=== PATIENT | male | born 1950 | race Hispanic/Latino ===

== ENCOUNTER 2018-10-16 17:00 | Emergency (ER) | payer SELFPAY ==
[2018-10-16] MEDS ORDERED: EPINEPHrine 1 MG/10 ML SYR IV ONE (17:01)
[2018-10-16] MEDS ORDERED: ATROPINE SULF 1 MG/10 ML SYR IV ONE (17:01)
[2018-10-16 17:29] LABS: Absolute Lymphocytes (CBC) 5.7 K/uL (0.7-4.9); Absolute Monocytes 0.8 K/uL (0.1-1.3); Absolute Neutrophil 3.9 K/uL (1.8-8.0); Basophils % 0.6 % (0-1.3); Eosinophils % 0.7 % (0-4.4); Hematocrit 51.3 % (39.6-49.0); Lymphocytes % 53.8 % (15.3-44.8); MPV 10.2 fL (7.6-11.3); RBC Red Blood Cell Count 4.75 M/uL (4.33-5.43)
[2018-10-16 18:07] LABS: Protime INR 1.04
[2018-10-16 18:08] LABS: Albumin 3.9 g/dL (3.4-5.0); Bilirubin Direct 0.2 mg/dL (0-0.2); Bilirubin Total 0.7 mg/dL (0.2-1.0); Magnesium 3.2 mg/dL (1.8-2.4); Potassium 4.8 mmol/L (3.5-5.1); Protein, Total 7.3 g/dL (6.4-8.2); Troponin (Emerg Dept Use Only) 1.27 ng/mL (0.0-0.045)
--- NOTE | 2018-10-16 18:10 | ER ---
Nurse's Notes [facility] Name: El Arenas Jr Age: 68 yrs Sex: Male : 1950 Arrival Date: 10/16/2018 Time: 17:03 Bed 3 Private MD: Diagnosis: Cardiac arrest Presentation: 10/16 16:58 Presenting complaint: EMS states: arrived to ED CPR in progress. Kobe tube in place, ss manually bagged by EMS staff. EMS reports that patient was out fishing with family when he was [place]. EMS called to scene at 1618 which he reportedly had a faint pulse. Bystanders began CPR at 1625 after they were no longer to feels a pulse. On EMS arrival to scene, pt was found to have no pulse, in PEA. Transition of care: patient was not received from another setting of care. Onset of symptoms was October 16, 2018. Risk Assessment: Do you want to hurt yourself or someone else? Unable to obtain. Initial Sepsis Screen: Does the patient meet any 2 criteria? Does the patient have a suspected source of infection? No. Patient's initial sepsis screen is negative. Care prior to arrival: Medication(s) given: Normal saline infusion, 1000 mL, EPI x 3 IVP given by EMS to L IO (tibia). 16:58 Method Of Arrival: EMS: [facility] 16:58 Acuity: KYLE 1 ss Historical: - Allergies: 17:42 Unable to obtain; ss - Home Meds: 17:42 Unable to obtain [Active]; ss - PMHx: 17:42 Hypertension; CAD; ss - PSHx: 17:42 Unable to obtain; ss - Immunization history:: Adult Immunizations unknown. - Social history:: Smoking status: unknown. - Ebola Screening: : Unable to complete screening because patient is unresponsive, patient is intubated. - Family history:: not pertinent. - Hospitalizations: : No recent hospitalization is reported. - History obtained from: son. Screenin:05 Abuse screen: no obvious signs of abuse/ neglect noted. Tuberculosis screening: No ss symptoms or risk factors identified. Fall Risk. Assessment: 17:03 Reassessment: Pulse check: no pulse, PEA. CPR resumed. ss 17:03 Neuro: Level of Consciousness is unresponsive, pupils are fixed and dilated. . aa5 Cardiovascular: Pulses are absent in carotid and femoral Rhythm is PEA. Respiratory: Airway via oral intubation Assisted ventilations with ambu bag. GI: Abdomen is round. Derm: Skin is clammy, Skin is cyanotic Skin temperature is cool. 17:06 Reassessment: pulse check: no pulse. PEA. CPR resumed. ss 17:08 Reassessment: pulse check: no pulse. PEA, CPR resumed. ss 17:11 Reassessment: pulse check: faint carotid pulse noted x 15 seconds. PEA again, CPR ss resumed. 17:15 Reassessment: pulse check: weak, thready carotid pulse noted x 1 minute. PEA at 1716 ss CPR resumed. 17:19 Reassessment: pulse check: Faint carotid pulse noted x 1 minute. CPR resumed after ss pulse is lost at 1720. 17:23 Reassessment: Pulse check: PEA, CPR resumed. ss 17:27 Reassessment: Pulse check, PEA. CPR resumed. 17:30 Reassessment: Pulse check: PEA, CPR resumed. Dr. Shah speaking with family at this ss time discussing events leading up to incident. Family reports that patient was fishing on a boat and was fine all day, but on the way [place] the [place], he collapsed, and after a family member rubbed his check, he gave a thumbs up, but became unresponsive shortly after. Son reports that patient was recently told he had a blockage in his heart, and was scheduled to have a angioplasty in 5 days. 17:33 Reassessment: Pulse check: PEA. 17:34 Reassessment: Time of called by Dr. Shah. 17:40 Reassessment: Verified with Sixto Aguila RN $71.10 counted and collected from patient's belongings. Given to son, Rico Arenas. 17:40 Reassessment: $71.10 gallego, gold cornelius, dentures (removed by EMS prior to intubation), and aa5 white shoes given to pt's son Rico Arenas. Witnessed by Shaila Banks RN. 17:40 Reassessment: Pt's family at bedside . aa5 17:40 Reassessment: Spoke to pt's family and notified of need to look for home. Pt's aa5 son states "we are from [place] so he will have to go up there". Pt's family verbalized understanding. . 18:35 Reassessment: Oil Dipper Rape at bedside speaking to family . aa5 18:40 Reassessment: Contacted [employer]. Spoke to Jessa Yan, case # [id number]. Jessa sergio Yan states pt is registered donor and next of kin information was given for [employer] Coordinator to contact family. Coordinator requesting to place cooling blanket on patient at this time and states she will follow-up about home later. Call started at 1819 and completed at 1840. . 21:00 Reassessment: [facility] and take the body. rr5 [facility] informed anneliese moscoso that [facility] Vital Signs: 16:58 Resp 16 A; ss 17:04 Temp 98.4(R); ss 17:15 Pulse 65; Pulse Ox 64% on ETT ambu; ss 17:17 Pulse Ox 87% on ETT ambu; ss 17:19 BP 60 / 40; Pulse 57; ss 17:20 Pulse 30; Pulse Ox 57% on ETT ambu; ss 17:28 Pulse Ox 48% on ETT ambu; ss 17:15 regained pulse x 1 minute. Pulse PEA once again at 1717 ss 17:19 Faint carotid pulse ss [place] Coma Score: 17:04 Eye Response: none(1). Verbal Response: none(1). Motor Response: none(1). Total: 3. ED Course: 16:58 Patient arrived in ED. aa5 17:02 Assisted provider with intubation using 7.5 mm ETT via oral route. ET tube secured at ss 23cm at the teeth. Set up intubation tray. Intubated by Duong Shah MD Placement verified by CO2 detector w/ + color change, auscultating bilateral breath sounds. Inserted saline lock: 20 gauge in left antecubital area, using aseptic technique. ,using aseptic technique. insertion by Sixto Tamayo RN Blood collected. 17:05 Arm band placed on right wrist. ss 17:05 Patient has correct armband on for positive identification. Bed in low position. ss plant protection superintendent on. Pulse ox on. NIBP on. 17:29 Inserted saline lock: 20 gauge in left wrist, using aseptic technique. Blood collected. ss 17:35 Duong Shah MD is Attending Physician. rn 17:41 Triage completed. ss 17:43 Sixto Aguila RN is Primary Nurse. aa5 17:58 Maintain EMS IV. Gauge \\T\\ site: 20 gauge IO to L tibia. ss 18:09 Duong Shah MD is Pronouncing Provider. rn 18:14 Notified [place] [employer] for Oil Dipper. Oil Dipper Rape was notified. ag 19:09 Report given to DEYSI Mata. aa5 19:25 cooling blanket applied. rr5 Administered Medications: 16:58 Drug: NS 0.9% 1000 ml {Note: administered pre hospital to L IO, continued in ED..} ss Route: IV; Rate: 1000 ml; Site: Other; 18:01 Follow up: infusion switched to L AC at 1701 ss 17:02 Drug: Sodium Bicarbonate 1 amp {Note: administered by Sixto Owen RN.} Route: IVP; Site: ss left antecubital; 17:02 Drug: EPINEPHrine 0.1mg/mL 1:10,000 1 mg {Note: administered to L IO.} Route: IVP; ss Site: Other; 17:05 Drug: Sodium Bicarbonate 1 amp {Note: administered by DEYSI Limon.} Route: IVP; Site: left ss antecubital; 17:05 Drug: EPINEPHrine 0.1mg/mL 1:10,000 1 mg Route: IVP; Site: left antecubital; ss 17:09 Drug: EPINEPHrine 0.1mg/mL 1:10,000 1 mg Route: IVP; Site: left antecubital; ss 17:12 Drug: EPINEPHrine 0.1mg/mL 1:10,000 1 mg Route: IVP; Site: left antecubital; 17:14 Drug: Sodium Bicarbonate 1 amp {Note: Administred by RN. sixto} Route: IVP; Site: left ss antecubital; 17:17 Drug: EPINEPHrine 0.1mg/mL 1:10,000 1 mg Route: IVP; Site: left antecubital; 17:20 Drug: Atropine 1 mg Route: IVP; Site: left antecubital; 17:24 Drug: EPINEPHrine 0.1mg/mL 1:10,000 1 mg Route: IVP; Site: left antecubital; ss 17:28 Drug: EPINEPHrine 0.1mg/mL 1:10,000 1 mg Route: IVP; Site: left antecubital; ss 17:32 Drug: EPINEPHrine 0.1mg/mL 1:10,000 1 mg Route: IVP; Site: left wrist; ss Point of Care Testing: Blood Glucose: 17:03 Blood Glucose: 226 mg/dL; ss Ranges: Intake: Outcome: 21:00 Patient : Time of 17:34 Pronounced by Duong Shah MD Body to home.rr5 21:00 Condition: 21:00 Discharge instructions given to family, Instructed on service coordination. Demonstrated understanding of instructions. 21:06 Patient left the ED. rr5 Signatures: Duong Shah MD MD rn Calderon, Audri RN RN aa5 Shaila Banks RN RN ss Attema, Lee, RN RN la1 Pushpa Ogden Raymond RN RN rr5 Corrections: (The following items were deleted from the chart) 17:48 17:42 Resp 16bpm; Assisted; [facility] 17:51 17:14 Resp 16bpm; Pulse Ox 57% ET / Ambu; ss 18:05 18:02 Reassessment: Pulse check: no pulse, PEA. CPR resumed [facility] 18:10 17:03 Patient arrived in ED. la1 aa5 18:13 17:23 Reassessment: Pulse check: PEA [facility] 18:16 17:33 Reassessment: Pulse check: PEA. Time of called by Dr. Shah. [facility] 18:38 17:40 Reassessment: $71.10. aa5 aa5 18:43 17:19 Reassessment: pulse check: Faint carotid pulse noted x 1 minute. CPR resumed ss after pulse is lost ss
--- NOTE | 2018-10-16 18:10 | EDPHYS ---
Physician Documentation [facility] Name: El Arenas Jr Age: 68 yrs Sex: Male : 1950 Arrival Date: 10/16/2018 Time: 17:03 Bed 3 Private MD: ED Physician Duong Shah HPI: 10/16 18:02 This 68 yrs old Male presents to ER via EMS with complaints of CPR in progress.rn 18:02 Preceding the arrest, the patient collapsed. The arrest occurred [place], in boat. rn Pre-hospital course: The arrest was witnessed EMS care prior to arrival: initiation of ACLS, peripheral IV, ACLS has been in progress for 40 minutes. ACLS details: Initial rhythm was PEA. The presenting rhythm is PEA. Airway: Kobe tube, Medications given by EMS prior to arrival - Epinephrine IV x 3 doses, Defibrillation was not performed, Response to therapy: continued arrest. The patient has not experienced similar symptoms in the past. Family reports on boat today fishing, was doing fine, when coming back in, collapsed, unresponsive. Son states recently patient told needed a cardiac stent, and had appt with cardiology coming up for the final say. . Historical: - Allergies: 17:42 Unable to obtain; ss - Home Meds: 17:42 Unable to obtain [Active]; ss - PMHx: 17:42 Hypertension; CAD; ss - PSHx: 17:42 Unable to obtain; ss - Immunization history:: Adult Immunizations unknown. - Social history:: Smoking status: unknown. - Ebola Screening: : Unable to complete screening because patient is unresponsive, patient is intubated. - Family history:: not pertinent. - Hospitalizations: : No recent hospitalization is reported. - History obtained from: son. ROS: 18:02 Unable to obtain ROS due to comatose state. rn Exam: 18:02 Constitutional: Well developed male, cyanotic and lifeless, compression delivered by rn JOSE device, kobe tube in place Head/Face: Normocephalic, atraumatic. Eyes: Dilated and unresponsive. ENT: NO oral trauma Cardiovascular: No spont contractions Respiratory: coarse bilateral breath sounds with bagging, no spont breaths Abdomen/GI: scaphoid, no masses or signs of trauma Back: No signs of trauma of back Male : Normal genitalia with no discharge or lesions. MS/ Extremity: No peripheral or central pulses Neuro: GCS 3, intubated Vital Signs: 16:58 Resp 16 A; ss 17:04 Temp 98.4(R); ss 17:15 Pulse 65; Pulse Ox 64% on ETT ambu; ss 17:17 Pulse Ox 87% on ETT ambu; ss 17:19 BP 60 / 40; Pulse 57; ss 17:20 Pulse 30; Pulse Ox 57% on ETT ambu; ss 17:28 Pulse Ox 48% on ETT ambu; ss 17:15 regained pulse x 1 minute. Pulse PEA once again at 1717 ss 17:19 Faint carotid pulse ss [place] Coma Score: 17:04 Eye Response: none(1). Verbal Response: none(1). Motor Response: none(1). Total: 3. ss Procedures: 18:02 Intubation: Intubated orally using # 4 Jenae blade with 7.5 mm ETT. was successful rn on first attempt. Cricoid pressure applied during procedure. Tube secured with ETT zaldivar at right side of mouth measured 23 cm at teeth. Placement verified by CO2 detector with (+) color change, auscultating bilateral breath sounds, Patient tolerated well. 18:02 CPR: See CPR flow sheet. Initial patient assessment: unresponsive, pupils fixed \T\ rn dilated, pulses present w/ compressions, The presenting cardiac rhythm is PEA. Compressions: began prior to arrival. Meds given: See Meds list. despite ED evaluation and treatment, the patient . CPR was stopped at 17:34. MDM: 17:35 Patient medically screened. rn 18:02 Differential diagnosis: arrythmia, cardiac arrest, respiratory arrest. Data reviewed: rn vital signs, nurses notes. Counseling: I had a detailed discussion with the patient and/or guardian regarding: the historical points, exam findings, and any diagnostic results supporting the discharge/admit diagnosis. Response to treatment: There is no appreciated change of the patient's symptoms at this time. 10/16 17:04 Order name: Basic Metabolic Panel ag 10/16 17:04 Order name: CBC with Diff ag 10/16 17:04 Order name: LFT's ag 10/16 17:04 Order name: Magnesium ag 10/16 17:04 Order name: NT PRO-BNP ag 10/16 17:04 Order name: PT-INR ag 10/16 17:04 Order name: Troponin (emerg Dept Use Only) ag 10/16 17:05 Order name: Basic Metabolic Panel EDMS 10/16 17:05 Order name: CBC with Automated Diff EDMS 10/16 17:05 Order name: Liver (Hepatic) Function EDMS 10/16 17:05 Order name: Magnesium EDMS 10/16 19:40 Order name: CBC Smear Scan EDMS 10/16 17:04 Order name: EKG; Complete Time: 17:06 ag 10/16 17:04 Order name: Cardiac monitoring; Complete Time: 17:54 ag 10/16 17:04 Order name: EKG - Nurse/Tech; Complete Time: 17:54 ag 10/16 17:04 Order name: IV Saline Lock; Complete Time: 17:54 ag 10/16 17:04 Order name: Labs collected and sent; Complete Time: 17:54 ag 10/16 17:04 Order name: O2 Per Protocol; Complete Time: 17:54 ag 10/16 17:04 Order name: O2 Sat Monitoring; Complete Time: 17:54 ag Administered Medications: 16:58 Drug: NS 0.9% 1000 ml {Note: administered pre hospital to L IO, continued in ED..} Route: IV; Rate: 1000 ml; Site: Other; 18:01 Follow up: infusion switched to L AC at 1701 17:02 Drug: Sodium Bicarbonate 1 amp {Note: administered by Karen Owen RN.} Route: IVP; Site: left antecubital; 17:02 Drug: EPINEPHrine 0.1mg/mL 1:10,000 1 mg {Note: administered to L IO.} Route: IVP; Site: Other; 17:05 Drug: Sodium Bicarbonate 1 amp {Note: administered by Braxton RN.} Route: IVP; Site: left ss antecubital; 17:05 Drug: EPINEPHrine 0.1mg/mL 1:10,000 1 mg Route: IVP; Site: left antecubital; 17:09 Drug: EPINEPHrine 0.1mg/mL 1:10,000 1 mg Route: IVP; Site: left antecubital; 17:12 Drug: EPINEPHrine 0.1mg/mL 1:10,000 1 mg Route: IVP; Site: left antecubital; 17:14 Drug: Sodium Bicarbonate 1 amp {Note: Administred by DEYSI henson.} Route: IVP; Site: left ss antecubital; 17:17 Drug: EPINEPHrine 0.1mg/mL 1:10,000 1 mg Route: IVP; Site: left antecubital; ss 17:20 Drug: Atropine 1 mg Route: IVP; Site: left antecubital; ss 17:24 Drug: EPINEPHrine 0.1mg/mL 1:10,000 1 mg Route: IVP; Site: left antecubital; ss 17:28 Drug: EPINEPHrine 0.1mg/mL 1:10,000 1 mg Route: IVP; Site: left antecubital; ss 17:32 Drug: EPINEPHrine 0.1mg/mL 1:10,000 1 mg Route: IVP; Site: left wrist; Point of Care Testing: Blood Glucose: 17:03 Blood Glucose: 226 mg/dL; Ranges: Critical Glucose Levels:Adult <50 mg/dl or >400 mg/dl <40 mg/dl or >180 mg/dl Disposition: 18:02 . rn Disposition: Patient pronounced on 10/16/18 17:34 by Duong Shah. Impression: Cardiac arrest. - Released to Home. Signatures: Dispatcher [employer] EDHI Duong Shah MD MD rn Smirch, Shelby, RN RN Pushpa Ogden Raymond RN RN rr5 Corrections: (The following items were deleted from the chart) 18:14 17:06 Chest Single View+[email or web address] ordered. EDHI EDMS 21:06 18:09 10/16/2018 18:09 Patient pronounced on 10/16/2018 at 17:34 by Duong Shah. rr5 Impression: Cardiac arrest. Released to Home. rn
[2018-10-16 20:06] LABS: Anisocytosis 2+; Blood Morphology Comment NOTED (NOT SEEN); Macrocytosis 2+; Platelet Estimate ADEQ; Urine White Blood Cell Casts OK
== END 2018-10-16 21:06 | disposition expired ==
LOC: ER 17:00
PROC: 5A12012 Performance of Cardiac Output, Single, Manual (ICD-10-PCS; principal; 2018-10-16)
PROC: 0BH17EZ Insertion of Endotracheal Airway into Trachea, Via Natural or Artificial Opening (ICD-10-PCS; 2018-10-16)
DX: I46.9 Cardiac arrest, cause unspecified (principal); I10 Essential (primary) hypertension; I25.10 Atherosclerotic heart disease of native coronary artery without angina pectoris
CPT/HCPCS: 31500; 36415; 80048; 80076; 83735; 83880; 84484; 85025; 85610; 92950; 99291; J0171